=== PATIENT | male | born 1955 | race Caucasian/White ===

== ENCOUNTER 2020-03-18 11:13 | Emergency (ER) | payer OTHER ==
[~2020-03-18] VITALS: Ht 188 cm; Wt 90.3 kg
[2020-03-18 11:22] VITALS: Ht 188 cm; Wt 90.3 kg
[2020-03-18 14:10] VITALS: BP 152/87
== END 2020-03-18 14:10 | disposition home or self-care (01) ==
LOC: ED 11:13
DX: S51.011A Laceration without foreign body of right elbow, initial encounter (principal); W18.30XA Fall on same level, unspecified, initial encounter; Y93.89 Activity, other specified; Y92.89 Other specified places as the place of occurrence of the external cause; Y99.8 Other external cause status
CPT/HCPCS: J2001; Q0092